=== PATIENT | female | born 1960 | race Hispanic/Latino ===

== ENCOUNTER 2016-09-28 13:35 | Inpatient (IN) | payer BC ==
--- NOTE | 2016-09-28 14:38 | C.PDOC ---
History Of Present Illness Patient presents to ED c/o left upper extremity weakness, left sided chest pain (constant) since yesterday at approx 3pm. Patient states she was at work, dropped a bag of chips and was unable to pick it up again. She then noticed the LUE weakness, and had left facial numbness/droop for approx 20 min. Patient has h/o HTN, seizure disorder, CAD/NSTEMI, TIA. She denies SOB, abdominal pain, palpitations, visual changes, gait changes, lower extremity weakness or sensory changes, palpitations, cough, fever. She admits she has been out of all he rmedications for > 2weeks. Time Seen by Provider: 09/28/16 14:11 Chief Complaint (Nursing): Weakness/Neurological Deficit History Per: Patient, Family History/Exam Limitations: no limitations Onset/Duration Of Symptoms: Hrs (since 3pm yesterday) Current Symptoms Are (Timing): Better Seizure Or Post-ictal Symptoms: None Past Medical History Reviewed: Historical Data, Nursing Documentation, Vital Signs Vital Signs: Last Vital Signs Temp 97.9 F 10/02/16 15:34 Pulse 63 10/02/16 15:34 Resp 20 10/02/16 15:34 BP 145/89 10/02/16 15:34 Pulse Ox 99 10/04/16 09:23 - Medical History PMH: CAD, HTN, Seizures Surgical History: Appendectomy - [facility] Procedures CORONAR ARTERIOGR-2 CATH (09/20/14) LEFT HEART CARDIAC CATH (09/20/14) LT HEART ANGIOCARDIOGRAM (09/20/14) Family History: States: CAD - Social History Hx Tobacco Use: Yes Hx Alcohol Use: No Hx Substance Use: No - Immunization History Hx Tetanus Toxoid Vaccination: No Hx Influenza Vaccination: No Hx Pneumococcal Vaccination: No Review Of Systems Except As Marked, All Systems Reviewed And Found Negative. Constitutional: Negative for: Fever, Chills Cardiovascular: Positive for: Chest Pain. Negative for: Palpitations Respiratory: Negative for: Cough, Shortness of Breath Gastrointestinal: Positive for: Nausea. Negative for: Vomiting, Abdominal Pain , Diarrhea Neurological: Positive for: Weakness (LUE), Numbness (LUE), Dizziness. Negative for: Incoordination, Change in Speech, Confusion, Seizures, Altered Mental Status, Headache Physical Exam - Physical Exam Appears: Well, Non-toxic, No Acute Distress Skin: Normal Color, Warm, Dry, No Rash Head: Atraumatic, Normacephalic Eye(s): bilateral: PERRL, EOMI, Other (pinpoint pupils B/L) Oral Mucosa: Moist Cardiovascular: Rhythm Regular Respiratory: Normal Breath Sounds, No Rales, No Rhonchi, No Wheezing Gastrointestinal/Abdominal: Normal Exam, Bowel Sounds, Soft, No Tenderness Back: Normal Inspection, No CVA Tenderness Extremity: Normal ROM, No Pedal Edema, No Calf Tenderness Pulses: Left Dorsalis Pedis: Normal, Right Dorsalis Pedis: Normal Neurological/Psych: Oriented x3, Normal Speech, Normal Cognition, Normal Cranial Nerves, Normal Motor (4/5 motor strength LUE, other extremities 5/5 motor strength), Normal Sensation (subjectively decreased sensation LUE), Normal Reflexes, No Dysarthria ED Course And Treatment - Laboratory Results Result Diagrams: 09/30/16 06:16 09/30/16 06:16 ECG: Interpreted By Me, Viewed By Me (sinus bradycardia 47bpm, normal axis, no acute ST/T wave changes) ECG Interpretation: Abnormal O2 Sat by Pulse Oximetry: 99 (RA) Pulse Ox Interpretation: Normal - Radiology CXR: Interpreted by Me, Viewed By Me (no infiltrates/effusions) - CT Scan/US CT HEAD Other Rad Studies (CT/US): Read By Radiologist, Radiology Report Reviewed CT/US Interpretation: Accession No. : [id number]. Patient Name / ID : ESPERANZA FLORES / [id number]. Exam Date : 09/28/2016 14:54:49 ( Approved ). Study Comment : Sex / Age : F / 56Y. Creator : Trevon Robetrs MD. Dictator : rTevon Roberts MD. Jewelry Cutter : Corporate Tutor : Trevon Roberts MD. Approver2 : Report Date : 09/28/2016 15:24:01. My Comment : . PROCEDURE: CT scan brain dated 09/28/2016. HISTORY: Left upper extremity weakness. COMPARISON: No prior study available for comparison. TECHNIQUE: Axial computed tomography images were obtained through the head/brain without intravenous contrast. Radiation dose: Total exam DLP = 757.01 mGy-cm. This CT exam was performed using one or more of the following dose reduction techniques: Automated exposure control, adjustment of the mA and/or kV according to patient size, and/or use of iterative reconstruction technique. FINDINGS: HEMORRHAGE: No acute parenchymal, subarachnoid nor extra-axial hemorrhage. BRAIN: There is a wedge-shaped area of partially cystic encephalomalacia left frontal lobe which could represent sequela of old infarct or old trauma. In addition, there mild diffuse/ confluent chronic periventricular white matter ischemic changes with scattered subcortical white matter ischemic changes as well. Note that the possibility of underlying acute infarct cannot be excluded based on this study. Clinical correlation recommended to determine whether of follow-up studies of the such as MRI with diffusion imaging is required and the urgency such imaging based on whether the patient is eligible for tPA therapy. Mild vascular calcifications present. Mild -moderate generalized volume loss. Prominent calcified pineal gland. VENTRICLES: No evidence of obstructive hydrocephalus. CALVARIUM: No acute calvarial fractures. 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 Remaining visualized paranasal sinuses well-developed and currently well-aerated. MASTOID AIR CELLS : Mastoid air complexes well-developed and currently well-aerated. OTHER FINDINGS: None. IMPRESSION: Chronic periventricular and scattered subcortical white matter ischemic changes. There is a small to medium size wedge -shaped area cystic encephalomalacia left frontal lobe that may represent old infarct or sequela of old trauma. Note that the possibility of an underlying acute infarct cannot be excluded based on this study . See above discussion for additional findings details and recommendations. Mild to moderate generalized volume loss. Progress Note: Blood work, EKG, CXR, CT head ordered and reviewed. Patient given PO Lisinipril, Lopressor & Plavix, IV morphine(after CT (-) for bleed). NO ASA given due to allergy. Reevaluation Time: 16:00 Reassessment Condition: Improved (Patient resting comfortably, no change in physical exam - chest pain has resolved.) - Physician Consult Information Physician Contacted: Thiago Enriquez Outcome Of Conversation: Discussed with Dr. Wendy Enriquez, he agrees with telemetry admisison for TIA, r/o CVA, chest pain, bradycardia (after usual dose of lopressor) . NIHSS Stroke Scale - Date/Time Evaluation Performed Date Performed: 09/28/16 Time Performed: 13:40 When Was NIHSS Performed: Baseline - How Severe is the Stoke Level of Consciousness: 0=Alert LOC to Questions: 0=Both comments correct LOC to commands: 0=Obeys both correctly Best Gaze: 0=Normal Visual: 0=No visual loss Facial: 0=Normal Motor Arm - Left: 0=No drift Motor Arm - Right: 0=No drift Motor Leg - Left: 0=No drift Motor Leg - Right: 0=No drift Limb Ataxia: 0=Absent Sensory: 1=Mild to moderate loss (LUE, left face) Best Language: 0=No aphasia Dysarthia: 0=Normal articulation Extinction & Inattention (Neglect): 0=Normal, no object Score: 1 Severity Of Stroke: 1-4= Minor Stroke rTPA Inclusion/Exclusion - Refusal of Treatment Patient Refused Treatment: No - Inclusion Criteria for Altepase Patient is 18 years or Older: Yes The Clinical Diagnosis of Ischemic Stroke That is Causing a Potentially Disabling Neurological Deficit: No Time of Onset is Well Established to be Less Than 270 Minute Before Treatment Would Begin: No Risk/Benefit Discussed With Patient/Family Member Present: No Disposition - Disposition Disposition: HOSPITALIZED Disposition Time: 16:24 Condition: STABLE - Clinical Impression Clinical Impression: TIA (transient ischemic attack), Chest pain, Bradycardia Decision To Admit - Pt Status Changed To: Hospital Disposition Of: Inpatient - Admit Certification Admit to Inpatient:: After my assessment, the patient will require hospitalization for at least two midnights. This is because of the severity of symptoms shown, intensity of services needed, and/or the medical risk in this patient being treated as an outpatient. - InPatient: Physician Admission Certification: I certify that this patient requires 2 or more midnights of care for the following reason:: see notes - . Bed Request Type: Telemetry Admitting Physician: Thiago Enriquez Patient Diagnosis: TIA (transient ischemic attack), Chest pain, Bradycardia
[2016-09-28 14:44] LABS: BASO # 0.1 K/uL (0.0-0.2); BASO % 1.2 % (0.0-2.0); EOS # 0.2 K/uL (0.0-0.7); EOS % 2.1 % (0.0-4.0); HEMATOCRIT 43.7 % (34.0-47.0); LYMPH # 2.2 K/uL (1.0-4.3); LYMPH % 28.1 % (20.0-40.0); MEAN CELL VOLUME 88.1 fL (81.0-99.0); MEAN CORPUSCULAR HEMOGLOBIN 28.3 pg (27.0-31.0); MEAN CORPUSCULAR HGB CONC 32.1 g/dL (33.0-37.0); MEAN PLATELET VOLUME 10.8 fL (7.2-11.7); MONO # 0.7 K/uL (0.0-0.8); MONO % 8.9 % (0.0-10.0); RED CELL DISTRIBUTION WIDTH 14.5 % (11.5-14.5); WHITE BLOOD COUNT 7.7 K/uL (4.8-10.8)
[2016-09-28 14:55] LABS: CHLORIDE 102 mmol/L (98-107)
[2016-09-28 14:56] LABS: POTASSIUM 4.2 mmol/L (3.6-5.2); SODIUM 134 mmol/L (132-148)
[2016-09-28 14:58] LABS: ALB/GLOB RATIO 1.5 (1.0-2.1); ALKALINE PHOSPHATASE 68 U/L (38-126); AST/SGOT 19 U/L (14-36); BILIRUBIN,TOTAL 0.9 mg/dL (0.2-1.3); BLOOD UREA NITROGEN 12 mg/dL (7-17); CARBON DIOXIDE 27 mmol/L (22-30); GFR AFRICAN-AMERICAN > 60; TOTAL PROTEIN 6.9 g/dL (6.3-8.3)
[2016-09-28 14:59] LABS: ALT/SGPT 26 U/L (9-52); CALCIUM 9.4 mg/dl (8.6-10.4); GLUCOSE,RANDOM 86 mg/dL (65-105)
--- NOTE | 2016-09-28 15:25 | CT ---
PROCEDURE: CT scan brain dated 09/28/2016. HISTORY: Left upper extremity weakness. COMPARISON: No prior study available for comparison TECHNIQUE: Axial computed tomography images were obtained through the head/brain without intravenous contrast. Radiation dose: Total exam DLP = 757.01 mGy-cm. This CT exam was performed using one or more of the following dose reduction techniques: Automated exposure control, adjustment of the mA and/or kV according to patient size, and/or use of iterative reconstruction technique. FINDINGS: HEMORRHAGE: No acute parenchymal, subarachnoid nor extra-axial hemorrhage. BRAIN: There is a wedge-shaped area of partially cystic encephalomalacia left frontal lobe which could represent sequela of old infarct or old trauma. In addition, there mild diffuse/ confluent chronic periventricular white matter ischemic changes with scattered subcortical white matter ischemic changes as well. Note that the possibility of underlying acute infarct cannot be excluded based on this study. Clinical correlation recommended to determine whether of follow-up studies of the such as MRI with diffusion imaging is required and the urgency such imaging based on whether the patient is eligible for tPA therapy. Mild vascular calcifications present. Mild -moderate generalized volume loss Prominent calcified pineal gland VENTRICLES: No evidence of obstructive hydrocephalus CALVARIUM: No acute calvarial fractures. 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 Remaining visualized paranasal sinuses well-developed and currently well-aerated. MASTOID AIR CELLS: Mastoid air complexes well-developed and currently well-aerated. OTHER FINDINGS: None. IMPRESSION: Chronic periventricular and scattered subcortical white matter ischemic changes. There is a small to medium size wedge-shaped area cystic encephalomalacia left frontal lobe that may represent old infarct or sequela of old trauma. Note that the possibility of an underlying acute infarct cannot be excluded based on this study . See above discussion for additional findings details and recommendations. Mild to moderate generalized volume loss.
--- NOTE | 2016-09-28 15:37 | RAD ---
PROCEDURE: CHEST RADIOGRAPH, 1 VIEW HISTORY: CP COMPARISON: Comparison chest 09/20/2014 no of tech the openNone available. FINDINGS: LUNGS: Minor bibasilar atelectasis improved from prior study. There may be some minimal biapical pleural zhong PLEURA: No pneumothorax or pleural fluid seen. CARDIOVASCULAR: Normal. OSSEOUS STRUCTURES: No significant abnormalities. VISUALIZED UPPER ABDOMEN: Normal. OTHER FINDINGS: None. IMPRESSION: Minor bibasilar atelectasis improved from prior study
--- NOTE | 2016-09-28 18:15 | CP.PCM.HP ---
History of Present Illness - History of Present Illness History of Present Illness: 56-year-old female patient with past medical history of CAD, hypertension, seizures, who presented to ED with complaint of left upper extremity weakness, left-sided chest pain since yesterday at approximately 3 PM. Patient states she was at work, dropped a bag of chips and was unable to pick it up again. Patient and noticed lower upper extremity weakness, and had left facial numbness , droop for approximately 20 minute. Patient denies S OB, abdominal pain, palpitation, visual changes, gait changes, lower extremity weakness or sensory changes, palpitation, cough, fever. Present on Admission - Present on Admission Any Indicators Present on Admission: No Past Patient History - Infectious Disease Hx of Infectious Diseases: None - Past Medical History & Family History Past Medical History?: Yes - Past Social History Smoking Status: Light Smoker < 10 Cigarettes Daily - CARDIAC Hx Hypertension: Yes - PULMONARY Hx Respiratory Disorders: No - NEUROLOGICAL Hx Seizures: Yes - HEENT Hx HEENT Problems: No - ENDOCRINE/METABOLIC Hx Endocrine Disorders: No - HEMATOLOGICAL/ONCOLOGICAL Hx Blood Disorders: No Hx AIDS: No - INTEGUMENTARY Hx Dermatological Problems: No - MUSCULOSKELETAL/RHEUMATOLOGICAL Hx Musculoskeletal Disorders: No Hx Falls: No - GASTROINTESTINAL Hx Gastrointestinal Disorders: No - GENITOURINARY/GYNECOLOGICAL Hx Genitourinary Disorders: No - PSYCHIATRIC Hx Substance Use: No - SURGICAL HISTORY Hx Appendectomy: Yes - ANESTHESIA Hx Anesthesia: Yes Hx Anesthesia Reactions: No Hx Malignant Hyperthermia: No Meds Allergies/Adverse Reactions: Allergies Allergy/AdvReac Type Severity Reaction Status Date / Time aspirin Allergy Verified 09/28/16 13:42 phenobarbital Allergy Verified 09/28/16 13:42 Physical Exam - Constitutional Appears: Well - Head Exam Head Exam: ATRAUMATIC, NORMAL INSPECTION, NORMOCEPHALIC - Eye Exam Eye Exam: EOMI, Normal appearance, PERRL Pupil Exam: NORMAL ACCOMODATION, PERRL - ENT Exam ENT Exam: Mucous Membranes Moist, Normal Exam - Neck Exam Neck exam: Positive for: Normal Inspection - Respiratory Exam Respiratory Exam: Decreased Breath Sounds - Cardiovascular Exam Cardiovascular Exam: REGULAR RHYTHM, +S1, +S2 - GI/Abdominal Exam GI & Abdominal Exam: Diminished Bowel Sounds, Soft - Rectal Exam Rectal Exam: Deferred Results - Vital Signs Recent Vital Signs: Last Vital Signs Temp 97.8 F 09/28/16 13:37 Pulse 53 L 09/28/16 17:20 Resp 12 09/28/16 17:20 BP 161/97 H 09/28/16 17:20 Pulse Ox 99 09/28/16 17:20 - Labs Result Diagrams: 09/30/16 06:16 09/30/16 06:16 Assessment & Plan (1) Bradycardia Status: Acute (2) CAD (coronary artery disease) Status: Acute (3) Chest pain Status: Acute (4) Hypercholesterolemia Status: Acute (5) NSTEMI (non-ST elevated myocardial infarction) Status: Acute Priority: High (6) Radiculopathy, cervical Status: Acute Priority: High (7) TIA (transient ischemic attack) Status: Acute (8) Uncontrolled hypertension Status: Acute Priority: High (9) Seizure Status: Chronic Priority: Medium - Assessment and Plan (Free Text) Plan: Consult cardiology Consult neurology on plavis as pt is allergic to asp hubert same rosuvastatin and work up
[2016-09-28] MEDS ORDERED: Enoxaparin 40 mg Syringe SC ONE (21:11)
[2016-09-29 07:39] LABS: CHOLESTEROL 164 mg/dL (0-199)
--- NOTE | 2016-09-29 10:13 | CON ---
DATE: 09/29/2016 REASON FOR CONSULTATION: TIA. HISTORY OF PRESENTING ILLNESS: The patient is a 56-year-old female who has been asked for evaluation of possible TIA. The patient was in the usual state of health yesterday, when she went to grab a ba g of chips, the chips fell from the left hand. After that, she felt weakness on her left side as wel l as drooping of the face. Her symptoms lasted for about 20 minutes and then spontaneously resolved. She has history of seizures as well. Seizures are described as generalized seizures. Her last sei jeaneth was in 01/2017. Denies any other complaints at the moment. She feels fine. Denies to have any headaches. REVIEW OF SYSTEMS: Denies any chest pain, shortness of breath, abdominal pain, constipation, diarrhe a, dysuria, pyuria, cough or sputum production. PAST MEDICAL HISTORY: Includes hypertension, coronary artery disease, seizures. MEDICATIONS AT HOME: Include metoprolol, lisinopril, Keppra 500 mg b.i.d., Lipitor, Neurontin and qu estionable Plavix. ALLERGIES: ASPIRIN AND PHENOBARBITAL. SOCIAL HISTORY: She does smoke cigarettes. Denies use of alcohol or illicit drugs. FAMILY HISTORY: Reviewed and noncontributory to the case. PHYSICAL EXAMINATION: GENERAL: The patient is a middle-aged female, lying on the bed, in no acute distress. VITAL SIGNS: Her blood pressure is 126/79, heart rate is 48 per minute, breathing at a rate of 16 pe r minute, temperature is 97.8 degrees Fahrenheit. HEENT: Head is normocephalic, atraumatic. NECK: Supple. There are no carotid bruits. LUNGS: Clear. CARDIOVASCULAR: S1, S2 audible. No murmurs. ABDOMEN: Soft, nontender, bowel sounds present. NEUROLOGIC EXAMINATION: MENTAL STATUS: The patient is awake, alert, oriented to time, place, person. Speech is fluent. Nam ing and repetition normal. Memory and cognition are intact. CRANIAL NERVES: Pupils are 4 mm bilaterally, reactive to light. Visual navas are full. Extraocula r movements are intact. There is no facial asymmetry. Palate is upgoing bilaterally and tongue is m idline. MOTOR: Tone is normal, power is 5/5 bilaterally in all extremities. Reflexes +2 and symmetrical. P lantars downgoing bilaterally. CEREBELLAR: [id number] shows no dysmetria. GAIT: Narrow based. LABORATORIES: Reviewed, shows WBC of 7.7, hemoglobin 14.0, hematocrit 43.7 and platelets of 193. So dium is 134, potassium 4.2, chloride 102, carbon dioxide 27, BUN of 12, creatinine 0.8, and glucose o f 86. Her urine toxicology screen positive for opiates. She had a CT scan of the head done, which s howed chronic periventricular and scattered subcortical white matter ischemic changes. There is smal l to medium wedge shaped area of cystic encephalomalacia left frontal lobe that may represent an infa rct or sequelae of old trauma. IMPRESSION: 1. Transient ischemic attack, rule out cerebrovascular accident. 2. History of seizure disorder. RECOMMENDATIONS: 1. The patient to have MRI of the brain without contrast. 2. The patient also to have an electroencephalogram. 3. The patient to have a carotid Doppler study. 4. The patient to have an echocardiogram. 5. The patient to be continued on Plavix as she is ALLERGIC TO ASPIRIN. 6. The patient also to be continued on statin. 7. The patient to be continued on her Keppra 500 mg twice a day. 8. Please continue supportive care and other treatment. Thank you for the opportunity to participate in the care of this patient. Pio Baird MD cc: [id number] TT: 09/29/2016 10:12:45 Confirmation # [id number] Dictation # [id number]
--- NOTE | 2016-09-29 11:47 | CP.PCM.CON ---
History of Present Illness - History of Present Illness History of Present Illness: Patient is a 56 year old female with a PMH HTN, hypercholesterolemia, who presents with neurological deficits. The patient was at home when she noted weakness of the left arm as well as facial droop. The patient states her symptoms lasted for 20 minutes. She denied headache or palpitations. Review of Systems - Constitutional Constitutional: absent: As Per HPI, Anorexia, Chills, Daytime Sleepiness, Excessive Sweating, Fatigue, Fever, Frequent Falls, Headache, Increased Appetite , Lethargy, Malaise, Night Sweats, Snoring, Sleep Apnea, Weight Gain, Weight Loss, Weakness, Other - EENT Eyes: absent: As Per HPI, Blind Spots, Blurred Vision, Change in Vision, Decreased Night Vision, Diplopia, Discharge, Dry Eye, Exophthalmos, Floaters, Irritation, Itchy Eyes, Loss of Peripheral Vision, Pain, Photophobia, Requires Corrective Lenses, Sees Flashes, Spots in Vision, Tunnel Vision, Other Visual Disturbances, Loss of Vision, Other Ears: absent: As Per HPI, Decreased Hearing, Ear Discharge, Ear Pain, Tinnitus, Abnormal Hearing, Disequilibrium, Dizziness, Other Nose/Mouth/Throat: absent: As Per HPI, Epistaxis, Nasal Congestion, Nasal Discharge, Nasal Obstruction, Nasal Trauma, Nose Pain, Post Nasal Drip, Sinus Pain, Sinus Pressure, Bleeding Gums, Change in Voice, Dental Pain, Dry Mouth, Dysphagia, Halitosis, Hoarsness, Lip Swelling, Mouth Lesions, Mouth Pain, Odynophagia, Sore Throat, Throat Swelling, Tongue Swelling, Facial Pain, Neck Pain, Neck Mass, Other - Cardiovascular Cardiovascular: absent: As Per HPI, Acrocyanosis, Chest Pain, Chest Pain at Rest , Chest Pain with Activity, Claudication, Diaphoresis, Dyspnea, Dyspnea on Exertion, Edema, Irregular Heart Rhythm, Pain Radiating to Arm/Neck/Jaw, Leg Edema, Leg Ulcers, Lightheadedness, Orthopnea, Palpitations, Paroxysmal Nocturnal Dyspnea, Pedal Edema, Radiating Pain, Rapid Heart Rate, Slow Heart Rate, Syncope, Other - Respiratory Respiratory: absent: As Per HPI, Cough, Dyspnea, Hemoptysis, Dyspnea on Exertion , Wheezing, Snoring, Stridor, Pain on Inspiration, Chest Congestion, Excessive Mucous Production, Change in Mucous Color, Pain with Coughing, Other - Gastrointestinal Gastrointestinal: absent: As Per HPI, Abdominal Pain, Belching, Bloating, Change in Bowel Habits, Change in Stool Character, Coffee Ground Emesis, Constipation, Cramping, Diarrhea, Dyspepsia, Dysphagia, Early Satiety, Excessive Flatus, Fecal Incontinence, Heartburn, Hematemesis, Hematochezia, Loose Stools, Melena, Nausea, Odynophagia, Temesmus, Vomiting, Other - Genitourinary Genitourinary: absent: As Per HPI, Change in Urinary Stream, Difficulty Urinating, Dysuria, Flank Pain, Hematuria, Pyuria, Nocturia, Urinary Incontinence, Urinary Frequency, Urinary Hesitance, Urinary Urgency, Voiding Freq/Small Amts, Freq UTI, Hx Renal/Bladder Calculi, Hx /Renal Surgery, Bladder Distension, Other - Musculoskeletal Musculoskeletal: Numbness - Integumentary Integumentary: absent: As Per HPI, Acne, Alopecia, Bleeding Lesions, Change in Hair, Change in Nails, Change in Pigmentation, Changing Lesions, Dry Skin, Erythema, Furuncle, Hirsutism, Lesions, New Lesions, Non-Healing Lesions, Photosensitivity, Pruritus, Rash, Skin Pain, Skin Ulcer, Sores, Striae, Swelling , Unusual Bruising, Wounds, Jaundice, Other - Neurological Neurological: Focal Weakness - Psychiatric Psychiatric: absent: As Per HPI, Abnormal Sleep Pattern, Anhedonia, Anxiety, Auditory Hallucinations, Behavioral Changes, Change in Appetite, Change in Libido, Confusion, Depression, Difficulty Concentrating, Hallucinations, Homicidal Ideation, Hopelessness, Irritability, Memory Loss, Mood Swings, Panic Attacks, Paranoia, Suicidal Ideation, Visual Hallucinations, Tactile Hallucinations, Other - Endocrine Endocrine: absent: As Per HPI, Change in Body Appearance, Change in Libido, Cold Intolorance, Deepening of Voice, Excessive Sweating, Fatigue, Flushing, Heat Intolorance, Increase in Ring/Shoe/Hat Size, Palpitations, Polydipsia, Polyphagia, Polyuria, Other - Hematologic/Lymphatic Hematologic: absent: As Per HPI, Easy Bleeding, Easy Bruising, Lymphadenopathy, Other Past Patient History - Infectious Disease Hx of Infectious Diseases: None - Past Medical History & Family History Past Medical History?: Yes - Past Social History Smoking Status: Light Smoker < 10 Cigarettes Daily - CARDIAC Hx Hypertension: Yes - PULMONARY Hx Respiratory Disorders: No - NEUROLOGICAL Hx Seizures: Yes - HEENT Hx HEENT Problems: No - RENAL Hx Chronic Kidney Disease: No - ENDOCRINE/METABOLIC Hx Endocrine Disorders: No - HEMATOLOGICAL/ONCOLOGICAL Hx Blood Disorders: No Hx AIDS: No - INTEGUMENTARY Hx Dermatological Problems: No - MUSCULOSKELETAL/RHEUMATOLOGICAL Hx Musculoskeletal Disorders: No Hx Falls: No - GASTROINTESTINAL Hx Gastrointestinal Disorders: No - GENITOURINARY/GYNECOLOGICAL Hx Genitourinary Disorders: No - PSYCHIATRIC Hx Substance Use: No - SURGICAL HISTORY Hx Appendectomy: Yes - ANESTHESIA Hx Anesthesia: Yes Hx Anesthesia Reactions: No Hx Malignant Hyperthermia: No Meds Allergies/Adverse Reactions: Allergies Allergy/AdvReac Type Severity Reaction Status Date / Time aspirin Allergy Verified 09/28/16 13:42 phenobarbital Allergy Verified 09/28/16 13:42 - Medications Medications: Current Medications Clopidogrel Bisulfate (Plavix) 75 mg PO DAILY [facility] Last Admin: 09/29/16 09:20 Dose: 75 mg Famotidine (Pepcid) 20 mg PO BID [facility] Last Admin: 09/29/16 09:20 Dose: 20 mg Levetiracetam (Keppra) 500 mg PO DAILY [facility] Last Admin: 09/29/16 10:46 Dose: 500 mg Lisinopril (Zestril) 40 mg PO DAILY [facility] Last Admin: 09/29/16 09:20 Dose: 40 mg Metoprolol Tartrate (Lopressor) 25 mg PO BID [facility] Last Admin: 09/29/16 09:20 Dose: 25 mg Rosuvastatin Calcium (Crestor) 10 mg PO [facility] Last Admin: 09/28/16 21:38 Dose: 10 mg Physical Exam - Constitutional Appears: Non-toxic - Head Exam Head Exam: NORMAL INSPECTION - Eye Exam Eye Exam: Normal appearance - ENT Exam ENT Exam: Mucous Membranes Moist - Neck Exam Neck exam: Positive for: Full Rom - Respiratory Exam Respiratory Exam: Decreased Breath Sounds - Cardiovascular Exam Cardiovascular Exam: REGULAR RHYTHM - GI/Abdominal Exam GI & Abdominal Exam: Normal Bowel Sounds - Rectal Exam Rectal Exam: Deferred - Extremities Exam Extremities exam: Positive for: pedal edema - Back Exam Back exam: NORMAL INSPECTION - Neurological Exam Neurological exam: Alert, Oriented x3 - Psychiatric Exam Psychiatric exam: Normal Affect - Skin Skin Exam: Normal Color Results - Vital Signs Recent Vital Signs: Last Vital Signs Temp 97.8 F 09/29/16 07:29 Pulse 48 L 09/29/16 07:29 Resp 22 09/29/16 07:29 BP 126/79 09/29/16 09:20 Pulse Ox 97 09/29/16 07:29 - Labs Result Diagrams: 09/28/16 14:36 09/28/16 14:36 Labs: Laboratory Results - last 24 hr 09/28/16 09/29/16 22:59 06:57 Triglycerides 78 Cholesterol 164 LDL Cholesterol Direct 100 HDL Cholesterol 44 Urine Opiates Screen Positive Urine Methadone Screen Negative Ur Barbiturates Screen Negative Ur Phencyclidine Scrn Negative Ur Amphetamines Screen Negative U Benzodiazepines Scrn Negative U Oth Cocaine Metabols Negative U Cannabinoids Screen Negative - EKG Data EKG Interpreted by: Myself EKG shows normal: Sinus rhythm Assessment & Plan (1) Hypercholesterolemia Assessment and Plan: recommend statin therapy Status: Acute (2) TIA (transient ischemic attack) Assessment and Plan: antiplatelet therapy with ASA/Plavix Status: Acute (3) Uncontrolled hypertension Assessment and Plan: will monitor blood pressure Status: Acute Priority: High
--- NOTE | 2016-09-29 14:08 | CP.PCM.PN ---
Subjective - Date & Time of Evaluation Date of Evaluation: 09/29/16 Time of Evaluation: 11:00 - Subjective Subjective: clinically same Objective - Vital Signs/Intake and Output Vital Signs (last 24 hours): Temp Pulse Resp BP Pulse Ox 97.8 F 48 L 22 126/79 97 09/29/16 07:29 09/29/16 07:29 09/29/16 07:29 09/29/16 09:20 09/29/16 07:29 - Medications Medications: Current Medications Clopidogrel Bisulfate (Plavix) 75 mg PO DAILY [facility] Last Admin: 09/29/16 09:20 Dose: 75 mg Famotidine (Pepcid) 20 mg PO BID [facility] Last Admin: 09/29/16 09:20 Dose: 20 mg Levetiracetam (Keppra) 500 mg PO DAILY [facility] Last Admin: 09/29/16 10:46 Dose: 500 mg Lisinopril (Zestril) 40 mg PO DAILY [facility] Last Admin: 09/29/16 09:20 Dose: 40 mg Metoprolol Tartrate (Lopressor) 25 mg PO BID [facility] Last Admin: 09/29/16 09:20 Dose: 25 mg Rosuvastatin Calcium (Crestor) 10 mg PO [facility] Last Admin: 09/28/16 21:38 Dose: 10 mg - Labs Labs: PT 11.0 SECONDS (9.7-12.2) 09/28/16 14:36 INR 1.0 09/28/16 14:36 APTT 28 SECONDS (21-34) 09/28/16 14:36 - Constitutional Appears: Well - Head Exam Head Exam: ATRAUMATIC, NORMAL INSPECTION, NORMOCEPHALIC - Eye Exam Eye Exam: EOMI, Normal appearance, PERRL Pupil Exam: NORMAL ACCOMODATION, PERRL - ENT Exam ENT Exam: Mucous Membranes Moist, Normal Exam - Neck Exam Neck Exam: Full ROM, Normal Inspection. absent: Lymphadenopathy - Respiratory Exam Respiratory Exam: Decreased Breath Sounds - Cardiovascular Exam Cardiovascular Exam: REGULAR RHYTHM, +S1, +S2 - GI/Abdominal Exam GI & Abdominal Exam: Soft, Diminished Bowel Sounds - Rectal Exam Rectal Exam: Deferred Assessment and Plan - Assessment and Plan (Free Text) Plan: on plavis as pt is allergic to asp hubert same rosuvastatin followup with cardio and neuro and work up
[2016-09-29 15:50] VITALS: RESP 20
--- NOTE | 2016-09-29 16:13 | VASCLAB ---
PROCEDURE: HISTORY: tia COMPARISON: None available. TECHNIQUE: Grayscale and duplex Doppler evaluation of the cervical carotid and vertebral arteries were performed. The common carotid, carotid bifurcations and cervical Internal Carotid Artery (ICA) and proximal External Carotid Artery (ECA) were evaluated. The vertebral arteries were evaluated for gross patency and flow direction. Report prepared by George Keating, BS, RVT FINDINGS: RIGHT CAROTID ARTERIES: 1. Common Carotid Artery: No significant focal plaque formation of the right common carotid artery. Maximum Peak Systolic velocity: 62 cm/sec: End-diastolic velocity 21 cm/sec. 2. Carotid Bifurcation: Heterogeneous plaque formation. Maximum Peak Systolic velocity: 56 cm/sec: End-diastolic velocity 19 cm/sec. 3. Internal Carotid Artery: Moderate plaque formation of the right proximal ICA which results in hemodynamically significant stenosis. Plaque description: Heterogeneous 3.1. Proximal Segment: Peak systolic velocity 218 cm/sec: End-diastolic velocity 78 cm/sec - % stenosis 60-70% 3.2. Middle Segment: Peak systolic velocity 104 cm/sec: End-diastolic velocity 47 cm/sec - % stenosis 16-49% 3.3. Distal Segment: Peak systolic velocity 42 cm/sec: End-diastolic velocity 13 cm/sec - % stenosis 0-15% 4. External Carotid Artery: No significant focal plaque formation. Peak systolic velocity 76 cm/sec 5. ICA/CCA Ratio: 3.5 LEFT CAROTID ARTERIES: 1. Common Carotid Artery: No significant focal plaque formation of the left common carotid artery. Maximum Peak Systolic velocity: 65 cm/sec: End-diastolic velocity 20 cm/sec. 2. Carotid Bifurcation: Heterogeneous plaque formation. Maximum Peak Systolic velocity: 62 cm/sec: End-diastolic velocity 17 cm/sec. 3. Internal Carotid Artery: Moderate plaque formation of the left proximal ICA which dose not results in hemodynamically significant stenosis. Plaque description: 3.1. Proximal Segment: Peak systolic velocity 75 cm/sec: End-diastolic velocity 31 cm/sec - % stenosis 0-15% 3.2. Middle Segment: Peak systolic velocity 76 cm/sec: End-diastolic velocity 29 cm/sec - % stenosis 0-15% 3.3. Distal Segment: Peak systolic velocity 70 cm/sec: End-diastolic velocity 28 cm/sec - % stenosis 0-15% 4. External Carotid Artery: No significant focal plaque formation. Peak systolic velocity 74 cm/sec 5. ICA/CCA Ratio: 1.2 VERTEBRAL ARTERIES: 1. Right Vertebral Artery: The right vertebral artery flow direction is antegrade. 2. Left Vertebral Artery: The left vertebral artery flow direction is antegrade. OTHER FINDINGS: 1. Right Brachial Blood pressure: 148 mmHg. 2. Left Brachial Blood pressure: 144 mmHg. IMPRESSION: RIGHT: 60-70% stenosis of the right proximal ICA with moderate hemodynamic significance. LEFT: Duplex scan does not suggest hemodynamically significant stenosis of the left extracranial carotid arteries.
--- NOTE | 2016-09-29 17:57 | MRI ---
PROCEDURE: MRI BRAIN WITHOUT CONTRAST HISTORY: tia COMPARISON: Comparison made with prior CT scan brain 09/28/2016. TECHNIQUE: Multiplanar, multisequence MR images of the brain were obtained without intravenous contrast enhancement. FINDINGS: HEMORRHAGE: No acute parenchymal, subarachnoid or extra-axial hemorrhage. No hemosiderin deposits are identified on gradient echo weighted sequence DWI: No evidence of an acute or early subacute infarction seen on the diffusion imaging. . BRAIN PARENCHYMA: There are diffuse/coalescent chronic periventricular white matter ischemic changes with larger more patchy periventricular and deep white matter prolonged T2 signal changes. . Multiple smaller chronic appearing prolonged T2 signal changes seen scattered about superior basal nuclei/ apple radiata and subcortical white matter. None of these changes exhibit restricted diffusion. Findings most likely represent chronic sequela of small vessel disease. Note that the other differential diagnostic considerations including atypical presentation of a demyelinating disease process would be less likely although not completely excluded There is also a more discrete area of encephalomalacia left frontal lobe likely representing sequela of chronic infarct nose sequela old trauma cannot be excluded. Minimally low lying cerebellar tonsils VENTRICLES: Mild generalized volume loss. CRANIUM: No acute calvarial fracture. ORBITS: Orbits and contents grossly unremarkable. PARANASAL SINUSES/MASTOIDS: Clear VASCULAR SYSTEM: Visualized major vascular flow voids at skull base are patent. OTHER FINDINGS: None. IMPRESSION: No acute intracranial hemorrhage. There are chronic appearing white matter and basal nuclei brainstem changes that are most consistent with chronic sequela of small vessel disease. Chronic left frontal lobe infarct Mild generalized volume loss.
--- NOTE | 2016-09-29 18:29 | CARD ---
APPROVED REPORT EKG Measurement Heart [id number] <Conclusion> Sinus bradycardia Otherwise normal ECG
[2016-09-30 06:55] LABS: BASO # 0.1 K/uL (0.0-0.2); BASO % 0.7 % (0.0-2.0); EOS # 0.2 K/uL (0.0-0.7); EOS % 2.4 % (0.0-4.0); LYMPH # 2.6 K/uL (1.0-4.3); LYMPH % 37.1 % (20.0-40.0); MEAN CELL VOLUME 87.8 fL (81.0-99.0); MEAN CORPUSCULAR HEMOGLOBIN 28.4 pg (27.0-31.0); MEAN CORPUSCULAR HGB CONC 32.3 g/dL (33.0-37.0); MEAN PLATELET VOLUME 11.1 fL (7.2-11.7); MONO # 0.8 K/uL (0.0-0.8); MONO % 10.8 % (0.0-10.0); RED CELL DISTRIBUTION WIDTH 14.3 % (11.5-14.5); WHITE BLOOD COUNT 7.1 K/uL (4.8-10.8)
[2016-09-30 07:19] LABS: CHLORIDE 102 mmol/L (98-107); POTASSIUM 4.3 mmol/L (3.6-5.2); SODIUM 139 mmol/L (132-148)
[2016-09-30 07:22] LABS: GFR AFRICAN-AMERICAN > 60
[2016-09-30 07:23] LABS: BLOOD UREA NITROGEN 15 mg/dL (7-17); CALCIUM 9.1 mg/dl (8.6-10.4); CARBON DIOXIDE 28 mmol/L (22-30); GLUCOSE,RANDOM 96 mg/dL (65-105)
--- NOTE | 2016-09-30 10:34 | CP.PCM.PN ---
Subjective - Date & Time of Evaluation Date of Evaluation: 09/30/16 Time of Evaluation: 14:00 - Subjective Subjective: clinically same Objective - Vital Signs/Intake and Output Vital Signs (last 24 hours): Temp Pulse Resp BP Pulse Ox 97.9 F 43 L 20 163/91 H 97 09/30/16 07:00 09/30/16 07:05 09/30/16 07:00 09/30/16 07:00 09/30/16 07:00 - Medications Medications: Current Medications Clopidogrel Bisulfate (Plavix) 75 mg PO DAILY [facility] Last Admin: 09/30/16 09:33 Dose: 75 mg Famotidine (Pepcid) 20 mg PO BID [facility] Last Admin: 09/30/16 09:33 Dose: 20 mg Levetiracetam (Keppra) 500 mg PO DAILY [facility] Last Admin: 09/30/16 09:33 Dose: 500 mg Lisinopril (Zestril) 40 mg PO DAILY [facility] Last Admin: 09/30/16 09:38 Dose: 40 mg Metoprolol Tartrate (Lopressor) 25 mg PO BID [facility] Rosuvastatin Calcium (Crestor) 10 mg PO HS [facility] Last Admin: 09/29/16 22:03 Dose: 10 mg - Labs Labs: 09/30/16 06:16 09/30/16 06:16 PT 11.0 SECONDS (9.7-12.2) 09/28/16 14:36 INR 1.0 09/28/16 14:36 APTT 28 SECONDS (21-34) 09/28/16 14:36 - Constitutional Appears: Well - Head Exam Head Exam: ATRAUMATIC, NORMAL INSPECTION, NORMOCEPHALIC - Eye Exam Eye Exam: EOMI, Normal appearance, PERRL Pupil Exam: NORMAL ACCOMODATION, PERRL - ENT Exam ENT Exam: Mucous Membranes Moist, Normal Exam - Neck Exam Neck Exam: Full ROM, Normal Inspection. absent: Lymphadenopathy - Respiratory Exam Respiratory Exam: Decreased Breath Sounds - Cardiovascular Exam Cardiovascular Exam: REGULAR RHYTHM, +S1, +S2 - GI/Abdominal Exam GI & Abdominal Exam: Soft, Diminished Bowel Sounds - Rectal Exam Rectal Exam: Deferred Assessment and Plan (1) Bradycardia Status: Acute (2) CAD (coronary artery disease) Status: Acute (3) Chest pain Status: Acute (4) Hypercholesterolemia Status: Acute (5) NSTEMI (non-ST elevated myocardial infarction) Status: Acute (6) Radiculopathy, cervical Status: Acute (7) TIA (transient ischemic attack) Status: Acute (8) Uncontrolled hypertension Status: Acute (9) Seizure Status: Chronic - Assessment and Plan (Free Text) Plan: Follow-up neurology Follow-upcardiology Continue Plavix Keppra Zestril Lopressor Crestor Continue blood pressure monitor
--- NOTE | 2016-09-30 12:15 | PN ---
DATE: 09/30/2016 SUBJECTIVE: The patient is lying on the bed, in no acute distress. Denies having any headache or di zziness. PHYSICAL EXAMINATION: VITAL SIGNS: Her blood pressure is 163/91, heart rate is 43 per minute, breathing at a rate of 16 pe r minute, temperature is 97.9 degrees Fahrenheit. HEENT: Normocephalic, atraumatic. NECK: Supple. There are no carotid bruits. LUNGS: Clear. CARDIOVASCULAR: S1, S2 audible. No murmurs. ABDOMEN: Soft and nontender with bowel sounds present. NEUROLOGIC EXAMINATION: MENTAL STATUS: The patient is awake, alert, oriented to time, place, person. Speech is fluent. Nam ing and repetition normal. Memory and cognition are intact. CRANIAL NERVE EXAMINATION: Pupils are 4 mm bilaterally reactive to light. Visual navas are full. Extraocular movements intact. There is no facial asymmetry. Palate is upgoing bilaterally and tongu e is midline. MOTOR EXAMINATION: Tone is normal. Power is 5/5 bilaterally in all extremities. Plantars downgoing bilaterally. CEREBELLAR: [id number] shows no dysmetria. LABORATORY DATA: Labs reviewed. MRI of the brain shows no acute intracranial hemorrhage. There are chronic appearing white matter and basal nuclei brainstem changes that are more consistent with chronic specialist neil sequellae of small vessel disease. Chronic left frontal lobe infarct. She also had a carotid Do ppler study done which shows evidence of 60%-70% right internal carotid artery stenosis. Left programming internship al carotid artery shows no significant stenosis. IMPRESSION: 1. Transient ischemic attack. 2. History of cerebrovascular disease. 3. History of seizure disorder. RECOMMENDATIONS: 1. The patient to be continued on Plavix. 2. The patient also to be continued on statin. 3. The patient had no seizures noted. The patient to be continued on Keppra; however, she has histor y of seizures. 4. The patient has no focal neurologic deficit. 5. The patient's carotid Doppler needs to be done to look for any worsening of her right internal ca rotid artery stenosis. 6. Please continue other treatment. 7. The patient is neurologically stable for discharge. No further neurologic recommendations. Plea se call neurology on an as needed basis. Thank you for the opportunity to participate in the care of this patient. Pio Baird MD cc: [id number] TT: 09/30/2016 12:14:40 Confirmation # [id number] Dictation # [id number]
--- NOTE | 2016-09-30 17:14 | CP.PCM.PN ---
Subjective - Date & Time of Evaluation Date of Evaluation: 09/30/16 Time of Evaluation: 17:00 - Subjective Subjective: patient has no new complaints. She is s/p echocardiogram Objective - Vital Signs/Intake and Output Vital Signs (last 24 hours): Temp Pulse Resp BP Pulse Ox 98.0 F 51 L 20 130/77 96 09/30/16 15:33 09/30/16 15:33 09/30/16 15:33 09/30/16 15:33 09/30/16 15:33 Intake and Output: 09/30/16 09/30/16 06:59 18:59 Intake Total 500 Balance 500 - Medications Medications: Current Medications Acetaminophen (Tylenol 325mg Tab) 650 mg PO Q6 PRN PRN Reason: Headache Last Admin: 09/30/16 14:15 Dose: 650 mg Clopidogrel Bisulfate (Plavix) 75 mg PO DAILY [facility] Last Admin: 09/30/16 09:33 Dose: 75 mg Famotidine (Pepcid) 20 mg PO BID [facility] Last Admin: 09/30/16 09:33 Dose: 20 mg Levetiracetam (Keppra) 500 mg PO DAILY [facility] Last Admin: 09/30/16 09:33 Dose: 500 mg Lisinopril (Zestril) 40 mg PO DAILY [facility] Last Admin: 09/30/16 09:38 Dose: 40 mg Metoprolol Tartrate (Lopressor) 25 mg PO BID [facility] Rosuvastatin Calcium (Crestor) 10 mg PO HS [facility] Last Admin: 09/29/16 22:03 Dose: 10 mg - Labs Labs: 09/30/16 06:16 09/30/16 06:16 PT 11.0 SECONDS (9.7-12.2) 09/28/16 14:36 INR 1.0 09/28/16 14:36 APTT 28 SECONDS (21-34) 09/28/16 14:36 - Constitutional Appears: Non-toxic - Head Exam Head Exam: NORMAL INSPECTION - Eye Exam Eye Exam: Normal appearance - ENT Exam ENT Exam: Mucous Membranes Moist - Neck Exam Neck Exam: Full ROM - Respiratory Exam Respiratory Exam: NORMAL BREATHING PATTERN - Cardiovascular Exam Cardiovascular Exam: REGULAR RHYTHM - GI/Abdominal Exam GI & Abdominal Exam: Normal Bowel Sounds - Rectal Exam Rectal Exam: Deferred - Extremities Exam Extremities Exam: Pedal Edema - Back Exam Back Exam: NORMAL INSPECTION - Neurological Exam Neurological Exam: Alert - Psychiatric Exam Psychiatric exam: Normal Affect - Skin Skin Exam: Normal Color Assessment and Plan (1) Hypercholesterolemia Assessment & Plan: statin therapy Status: Acute (2) TIA (transient ischemic attack) Assessment & Plan: antiplatelet therapy Status: Acute (3) Uncontrolled hypertension Assessment & Plan: blood pressure control Status: Acute
--- NOTE | 2016-09-30 18:08 | EEG ---
DATE: 09/30/2016 INTRODUCTION: This is a digitally recorded EEG monitoring using standard EEG montages. BACKGROUND RHYTHM: The EEG shows a background activity of 9-10 Hz alpha activity in parietooccipital region. The EEG activity is bilaterally symmetrical and synchronous. There is attenuation of the b ackground activity on eye opening. A small amount of myogenic artifact noticed in this EEG recording . ABNORMAL POTENTIALS: No spikes, sharp waves or focal slowing was seen. PHOTIC STIMULATION AND HYPERVENTILATION: Photic stimulation did not reveal any abnormality. Hyperve ntilation was not performed. IMPRESSION: Normal EEG. No epileptiform activity seen in this EEG recording. Pio Baird MD cc: [id number] TT: 09/30/2016 18:07:31 Confirmation # [id number] Dictation # [id number]
--- NOTE | 2016-10-01 00:02 | CARD ---
APPROVED REPORT EXAM: Two-dimensional and M-mode echocardiogram with Doppler and color Doppler. Other Information Quality : GoodRhythm : NSR INDICATION CVA/TIA CAD RISK FACTORS Hypertension Smoking M-Mode DIMENSIONS RVDd2.21 (2.1-3.2cm)Left Atrium (MM)3.35 (2.5-4.0cm) IVSd1.07 (0.7-1.1cm)Aortic Root2.60 (2.2-3.7cm) LVDd4.26 (4.0-5.6cm)Aortic Cusp Exc.1.66 (1.5-2.0cm) PWd0.68 (0.7-1.1cm)FS (%) 34 % LVDs2.83 (2.0-3.8cm)LVEF (%)63 (>50%) Mitral Valve MV E Uqgshzur28.6cm/sMV A Qpqfflsr37.6cm/sE/A ratio1.3 TDI E/Lateral E'0.0E/Medial E'0.0 Tricuspid Valve TR Peak Bdjejphl471qf/sTR Peak Gr.[id number] LEFT VENTRICLE The left ventricle is normal size. There is normal left ventricular wall thickness. Left ventricle systolic function is normal. The Ejection Fraction is 60-65%. There is normal LV segmental wall motion. The left ventricular diastolic function is normal. There is no ventricular septal defect visualized. RIGHT VENTRICLE The right ventricle is normal size. The right ventricular systolic function is normal. ATRIA The left atrium size is normal. The right atrium size is normal. AORTIC VALVE The aortic valve is mildly sclerotic. The aortic valve is tri-cuspid. No aortic regurgitation is present. There is no aortic valvular stenosis. MITRAL VALVE The mitral valve is normal in structure. There is no evidence of mitral valve prolapse. Mitral regurgitation is trace. TRICUSPID VALVE The tricuspid valve is normal in structure. There is trace tricuspid regurgitation. Right ventricular systolic pressure is estimated at less than 30 mmHg. There is no pulmonary hypertension. PULMONIC VALVE The pulmonic valve is not well visualized. There is no pulmonic valvular regurgitation. GREAT VESSELS The IVC is normal in size and collapses >50% with inspiration. PERICARDIAL EFFUSION There is no pericardial effusion. <Conclusion> Left ventricle systolic function is normal. The Ejection Fraction is 60-65%. The left ventricular diastolic function is normal. Mitral regurgitation is trace.
[2016-10-01] MEDS ORDERED: Sodium Chloride 0.9% 1,000 ML IV SCH (20:00)
--- NOTE | 2016-10-01 22:32 | CP.PCM.PN ---
Subjective - Date & Time of Evaluation Date of Evaluation: 10/01/16 Time of Evaluation: 12:00 - Subjective Subjective: Clinically same Objective - Vital Signs/Intake and Output Vital Signs (last 24 hours): Temp Pulse Resp BP Pulse Ox 98.0 F 51 L 20 130/77 96 09/30/16 15:33 09/30/16 15:33 09/30/16 15:33 09/30/16 15:33 09/30/16 15:33 - Medications Medications: Current Medications Acetaminophen (Tylenol 325mg Tab) 650 mg PO Q6 PRN PRN Reason: Headache Last Admin: 09/30/16 14:15 Dose: 650 mg Clopidogrel Bisulfate (Plavix) 75 mg PO DAILY [facility] Last Admin: 09/30/16 09:33 Dose: 75 mg Famotidine (Pepcid) 20 mg PO BID [facility] Last Admin: 09/30/16 18:29 Dose: 20 mg Levetiracetam (Keppra) 500 mg PO DAILY [facility] Last Admin: 09/30/16 09:33 Dose: 500 mg Lisinopril (Zestril) 40 mg PO DAILY [facility] Last Admin: 09/30/16 09:38 Dose: 40 mg Rosuvastatin Calcium (Crestor) 10 mg PO HS [facility] Last Admin: 10/01/16 21:22 Dose: 10 mg - Labs Labs: 09/30/16 06:16 09/30/16 06:16 PT 11.0 SECONDS (9.7-12.2) 09/28/16 14:36 INR 1.0 09/28/16 14:36 APTT 28 SECONDS (21-34) 09/28/16 14:36 - Constitutional Appears: Well - Head Exam Head Exam: ATRAUMATIC, NORMAL INSPECTION, NORMOCEPHALIC - Eye Exam Eye Exam: EOMI, Normal appearance, PERRL Pupil Exam: NORMAL ACCOMODATION, PERRL - ENT Exam ENT Exam: Mucous Membranes Moist, Normal Exam - Neck Exam Neck Exam: Full ROM, Normal Inspection. absent: Lymphadenopathy - Respiratory Exam Respiratory Exam: Clear to Ausculation Bilateral, NORMAL BREATHING PATTERN - Cardiovascular Exam Cardiovascular Exam: REGULAR RHYTHM, +S1, +S2 - GI/Abdominal Exam GI & Abdominal Exam: Soft, Diminished Bowel Sounds - Rectal Exam Rectal Exam: Deferred - Neurological Exam Neurological Exam: Oriented x3 Assessment and Plan (1) Bradycardia Status: Acute (2) CAD (coronary artery disease) Status: Acute (3) Chest pain Status: Acute (4) Hypercholesterolemia Status: Acute (5) NSTEMI (non-ST elevated myocardial infarction) Status: Acute (6) Radiculopathy, cervical Status: Acute (7) TIA (transient ischemic attack) Status: Acute (8) Uncontrolled hypertension Status: Acute (9) Seizure Status: Chronic - Assessment and Plan (Free Text) Plan: Follow-up neurology Follow-upcardiology Continue Plavix Keppra Zestril Lopressor Crestor Continue blood pressure monitor
--- NOTE | 2016-10-02 07:35 | CP.PCM.PN ---
Subjective - Date & Time of Evaluation Date of Evaluation: 10/02/16 Time of Evaluation: 07:30 - Subjective Subjective: patient has no current chest pain or dyspnea Objective - Vital Signs/Intake and Output Vital Signs (last 24 hours): Temp Pulse Resp BP Pulse Ox 97.4 F L 65 20 136/87 96 10/01/16 23:10 10/02/16 03:30 10/01/16 23:10 10/01/16 23:10 10/01/16 23:10 Intake and Output: 10/02/16 10/02/16 06:59 18:59 Intake Total 400 Balance 400 - Medications Medications: Current Medications Acetaminophen (Tylenol 325mg Tab) 650 mg PO Q6 PRN PRN Reason: Headache Last Admin: 09/30/16 14:15 Dose: 650 mg Clopidogrel Bisulfate (Plavix) 75 mg PO DAILY [facility] Last Admin: 09/30/16 09:33 Dose: 75 mg Famotidine (Pepcid) 20 mg PO BID [facility] Last Admin: 09/30/16 18:29 Dose: 20 mg Levetiracetam (Keppra) 500 mg PO DAILY [facility] Last Admin: 09/30/16 09:33 Dose: 500 mg Lisinopril (Zestril) 40 mg PO DAILY [facility] Last Admin: 09/30/16 09:38 Dose: 40 mg Rosuvastatin Calcium (Crestor) 10 mg PO [facility] Last Admin: 10/01/16 21:22 Dose: 10 mg - Labs Labs: 09/30/16 06:16 09/30/16 06:16 PT 11.0 SECONDS (9.7-12.2) 09/28/16 14:36 INR 1.0 09/28/16 14:36 APTT 28 SECONDS (21-34) 09/28/16 14:36 - Constitutional Appears: Non-toxic - Eye Exam Eye Exam: Normal appearance - ENT Exam ENT Exam: Mucous Membranes Moist - Neck Exam Neck Exam: Full ROM - Respiratory Exam Respiratory Exam: Decreased Breath Sounds - Cardiovascular Exam Cardiovascular Exam: REGULAR RHYTHM - GI/Abdominal Exam GI & Abdominal Exam: Normal Bowel Sounds - Rectal Exam Rectal Exam: Deferred - Extremities Exam Extremities Exam: absent: Pedal Edema - Back Exam Back Exam: NORMAL INSPECTION - Neurological Exam Neurological Exam: Alert - Psychiatric Exam Psychiatric exam: Normal Affect - Skin Skin Exam: Normal Color Assessment and Plan (1) Hypercholesterolemia Assessment & Plan: statin therapy Status: Acute (2) TIA (transient ischemic attack) Assessment & Plan: recommend antiplatelet therapy Status: Acute (3) Uncontrolled hypertension Assessment & Plan: blood pressure is controlled Status: Acute
[2016-10-02 15:43] VITALS: BP 145/89; PULSE 63; TEMP 97.9
--- NOTE | 2016-10-02 18:00 | CP.PCM.PN ---
Subjective - Date & Time of Evaluation Date of Evaluation: 10/02/16 Time of Evaluation: 12:00 - Subjective Subjective: clinically same Objective - Vital Signs/Intake and Output Vital Signs (last 24 hours): Temp Pulse Resp BP Pulse Ox 97.9 F 63 20 145/89 95 10/02/16 15:34 10/02/16 15:34 10/02/16 15:34 10/02/16 15:34 10/02/16 15:34 Intake and Output: 10/02/16 10/02/16 06:59 18:59 Intake Total 400 Balance 400 - Medications Medications: Current Medications Acetaminophen (Tylenol 325mg Tab) 650 mg PO Q6 PRN PRN Reason: Headache Last Admin: 09/30/16 14:15 Dose: 650 mg Clopidogrel Bisulfate (Plavix) 75 mg PO DAILY [facility] Last Admin: 10/02/16 09:56 Dose: 75 mg Famotidine (Pepcid) 20 mg PO BID [facility] Last Admin: 10/02/16 09:56 Dose: 20 mg Levetiracetam (Keppra) 500 mg PO DAILY [facility] Last Admin: 10/02/16 09:56 Dose: 500 mg Lisinopril (Zestril) 40 mg PO DAILY [facility] Last Admin: 10/02/16 09:57 Dose: 40 mg Rosuvastatin Calcium (Crestor) [address] [facility] Last Admin: 10/01/16 21:22 Dose: 10 mg - Labs Labs: 09/30/16 06:16 09/30/16 06:16 PT 11.0 SECONDS (9.7-12.2) 09/28/16 14:36 INR 1.0 09/28/16 14:36 APTT 28 SECONDS (21-34) 09/28/16 14:36 - Constitutional Appears: Well - Head Exam Head Exam: ATRAUMATIC, NORMAL INSPECTION, NORMOCEPHALIC - Eye Exam Eye Exam: EOMI, Normal appearance, PERRL Pupil Exam: NORMAL ACCOMODATION, PERRL - ENT Exam ENT Exam: Mucous Membranes Moist, Normal Exam - Neck Exam Neck Exam: Full ROM, Normal Inspection. absent: Lymphadenopathy - Respiratory Exam Respiratory Exam: Decreased Breath Sounds - Cardiovascular Exam Cardiovascular Exam: REGULAR RHYTHM, +S1, +S2 - GI/Abdominal Exam GI & Abdominal Exam: Soft, Diminished Bowel Sounds - Rectal Exam Rectal Exam: Deferred Assessment and Plan - Assessment and Plan (Free Text) Plan: Patient can be discharged today Follow-up with cardiology Follow-up with neurology
[2016-10-04 09:20] VITALS: O2SAT 99
== END 2016-10-02 17:30 | disposition left against medical advice (07) | DRG 69 ==
LOC: C.ER 13:35 → C.9E 16:24 → C.6T 16:40
PROVIDERS: ADMIT Internal Medicine Nephrology; ATTEND Internal Medicine Nephrology
DX: G45.9 Transient cerebral ischemic attack, unspecified (principal); G40.409 Other generalized epilepsy and epileptic syndromes, not intractable, without status epilepticus; I10 Essential (primary) hypertension; R07.9 Chest pain, unspecified; F17.210 Nicotine dependence, cigarettes, uncomplicated; I25.10 Atherosclerotic heart disease of native coronary artery without angina pectoris; Z88.6 Allergy status to analgesic agent; E78.00 Pure hypercholesterolemia, unspecified; I25.2 Old myocardial infarction; Z79.899 Other long term (current) drug therapy